=== PATIENT | female | born 2000 | race Caucasian/White ===

== ENCOUNTER 2020-02-25 14:35 | Emergency (ER) | payer OTHER | END 2020-02-25 17:50 | disposition left against medical advice (07) | LOC: ER1 14:35 | DX: U07.1 COVID-19 (principal); Z53.21 Procedure and treatment not carried out due to patient leaving prior to being seen by health care provider ==

== ENCOUNTER 2020-02-27 00:42 | Emergency (ER) | payer OTHER | END 2020-02-27 01:40 | disposition left against medical advice (07) | LOC: ER1 00:42 | DX: U07.1 COVID-19 (principal); Z53.21 Procedure and treatment not carried out due to patient leaving prior to being seen by health care provider ==